=== PATIENT | male | born 1940 | race Caucasian/White ===

== ENCOUNTER 2018-04-21 08:30 | Day surgery (SDC) | payer MEDICARE, OTHER ==
[~2018-04-21 08:30] MED LIST: KETOROLAC TROMETHAMINE 0.45% 4 DROP/0.4 ML DROPERETTE OS PRN
[2018-04-21] MEDS ORDERED: MIDAZOLAM 2 MG/2 ML INJ ONE (09:12)
[2018-04-21] MEDS: TROPICAMIDE 1% OPH SOLN 3 ML OS PRN ×3 (09:45→10:05)
[2018-04-21] MEDS: CYCLOPENTOLATE 0.2%/PHENYLEPHRINE 1% OPH SOLN 2 ML OS PRN ×3 (09:45→10:05)
[2018-04-21] MEDS: TETRACAINE HCL 0.5% OPH SOLN 0.6 ML DROPERETTE OS PRN ×4 (09:45→10:20)
[2018-04-21] MEDS: BESIFLOXACIN HCL 0.6% OPH SUSP 5 ML BOTTLE OS PRN ×6 (09:45→10:47)
[2018-04-21] MEDS: LIDOCAINE 1% INJ-PF (10 MG/ML) 30 ML SDV ONE ×2 (10:06→10:29)
[2018-04-21] MEDS: TOBRAMYCIN SULFATE/DEXAMETH OPH OINTMENT 3.5 GM ONE ×4 (10:07→10:47)
[2018-04-21] MEDS: CHONDR SU A NA/HYALUR INTRAOC KIT (SURGICARE) ONE ×2 (10:08→10:29)
[2018-04-21] MEDS: EPINEPHRINE INJ/PF 1 MG/1 ML AMPULE ONE ×2 (10:08→10:29)
== END 2018-04-21 11:18 | disposition home or self-care (01) ==
LOC: SC 08:30
PROVIDERS: ATTEND Ophthalmology
DX: H25.12 Age-related nuclear cataract, left eye (principal); H40.1121 Primary open-angle glaucoma, left eye, mild stage; E78.00 Pure hypercholesterolemia, unspecified; N40.0 Benign prostatic hyperplasia without lower urinary tract symptoms; Z79.82 Long term (current) use of aspirin; Z79.899 Other long term (current) drug therapy
CPT/HCPCS: 0191T; 66984; 142; C1783; J0171; J2250; J3490; V2632

== ENCOUNTER 2018-05-05 06:28 | Day surgery (SDC) | payer MEDICARE, OTHER ==
[~2018-05-05 06:28] MED LIST changes: +KETOROLAC TROMETHAMINE 0.45% 4 DROP/0.4 ML DROPERETTE OD PRN; -KETOROLAC TROMETHAMINE 0.45% 4 DROP/0.4 ML DROPERETTE OS PRN
[2018-05-05] MEDS: TETRACAINE HCL 0.5% OPH SOLN 0.6 ML DROPERETTE OD PRN ×3 (06:50→07:51)
[2018-05-05] MEDS: TROPICAMIDE 1% OPH SOLN 3 ML OD PRN ×3 (06:50→07:15)
[2018-05-05] MEDS: BESIFLOXACIN HCL 0.6% OPH SUSP 5 ML BOTTLE OD PRN ×4 (06:50→08:16)
[2018-05-05] MEDS: CYCLOPENTOLATE 0.2%/PHENYLEPHRINE 1% OPH SOLN 2 ML OD PRN ×3 (06:50→07:15)
[2018-05-05] MEDS ORDERED: LIDOCAINE 1% INJ-PF (10 MG/ML) 30 ML SDV ONE (07:12)
[2018-05-05] MEDS ORDERED: EPINEPHRINE INJ/PF 1 MG/1 ML AMPULE ONE (07:12)
[2018-05-05] MEDS ORDERED: CHONDR SU A NA/HYALUR INTRAOC KIT (SURGICARE) ONE (07:12)
[2018-05-05] MEDS ORDERED: MIDAZOLAM 2 MG/2 ML INJ ONE (07:14)
[2018-05-05] MEDS ORDERED: LIDOCAINE 1%/PHENYLEPHRINE 1.5% 1 ML VIAL ONE (07:24)
[2018-05-05] MEDS: TOBRAMYCIN SULFATE/DEXAMETH OPH OINTMENT 3.5 GM ONE ×2 (08:16)
== END 2018-05-05 08:47 | disposition home or self-care (01) ==
LOC: SC 06:28
PROVIDERS: ATTEND Ophthalmology
DX: H25.11 Age-related nuclear cataract, right eye (principal); H40.1111 Primary open-angle glaucoma, right eye, mild stage; Z98.42 Cataract extraction status, left eye; E78.00 Pure hypercholesterolemia, unspecified; Z79.899 Other long term (current) drug therapy; Z79.82 Long term (current) use of aspirin
CPT/HCPCS: 0191T; 66984; C1783; J0171; J2250; J2370; J3490; V2632